=== PATIENT | male | born 1965 | race Two or more races ===

== ENCOUNTER 2020-01-14 05:10 | Day surgery (SDC) | payer OTHER ==
[2020-01-14] MEDS ORDERED: DUI500 PO (09:03)
[2020-01-14] MEDS ORDERED: ULTRACET PO (09:03)
== END 2020-01-14 15:25 | disposition home or self-care (01) ==
LOC: CIR.AMB 05:10
PROVIDERS: ATTEND Orthopaedic Surgery Sports Medicine
DX: M23.222 Derangement of posterior horn of medial meniscus due to old tear or injury, left knee (principal); M94.262 Chondromalacia, left knee; M65.862 Other synovitis and tenosynovitis, left lower leg

== ENCOUNTER 2022-03-29 05:14 | Day surgery (SDC) | payer OTHER ==
[~2022-03-29] VITALS: Ht 172.7 cm; Wt 92.5 kg
[~2022-03-29 05:14] MED LIST: CATAFLAN PO; DUI500 PO; ULTRACET PO
[2022-03-29] MEDS ORDERED: DUI500 PO (08:41)
[2022-03-29] MEDS ORDERED: ULTRACET PO (08:41)
== END 2022-03-29 14:25 | disposition home or self-care (01) ==
LOC: CIR.AMB 05:14
PROVIDERS: ATTEND Orthopaedic Surgery Sports Medicine
DX: S83.241A Other tear of medial meniscus, current injury, right knee, initial encounter (principal); M17.11 Unilateral primary osteoarthritis, right knee; Z20.822 Contact with and (suspected) exposure to COVID-19